=== PATIENT | female | born 1970 | race Two or more races ===

== ENCOUNTER 2019-06-13 15:21 | Emergency (ER) | payer OTHER ==
[~2019-06-13] VITALS: Ht 152.4 cm; Wt 64.0 kg
== END 2019-06-13 19:28 | disposition home or self-care (01) ==
LOC: ER 15:21
DX: B34.9 Viral infection, unspecified (principal)

== ENCOUNTER 2019-12-20 10:35 | Outpatient (CLI) | payer OTHER | END 2019-12-20 10:47 | disposition home or self-care (01) | LOC: RAD 10:35 | PROVIDERS: ATTEND Physical Medicine & Rehabilitation | DX: M16.11 Unilateral primary osteoarthritis, right hip (principal) ==

== ENCOUNTER 2021-02-18 14:09 | Outpatient (CLI) | payer OTHER | END 2021-02-18 14:18 | disposition home or self-care (01) | LOC: SONOGRAMA 14:09 | PROVIDERS: ATTEND Urology | DX: N30.00 Acute cystitis without hematuria (principal) ==

== ENCOUNTER 2022-05-10 08:11 | Outpatient (CLI) | payer OTHER | END 2022-05-10 08:20 | disposition home or self-care (01) | LOC: RAD 08:11 | DX: J45.901 Unspecified asthma with (acute) exacerbation (principal); J20.9 Acute bronchitis, unspecified ==

== ENCOUNTER 2024-02-14 09:19 | Outpatient (CLI) | payer OTHER | END 2024-02-14 13:48 | disposition home or self-care (01) | LOC: RAD 09:19 | DX: M25.552 Pain in left hip (principal); M54.51 Vertebrogenic low back pain; M25.551 Pain in right hip ==

== ENCOUNTER 2024-06-04 09:04 | Emergency (ER) | payer OTHER ==
[~2024-06-04] VITALS: Ht 152.4 cm; Wt 60.8 kg
[2024-06-04] MEDS ORDERED: ORPHENADRINE CITRATE 30 MG/ML AMPUL IM STA (09:36)
[2024-06-04] MEDS ORDERED: KETOROLAC TROMETHAMINE 30 MG VIAL IM STA (09:36)
[2024-06-04] MEDS ORDERED: ORPHENADRINE CITRATE 30 MG/ML AMPUL ONE (09:44)
[2024-06-04] MEDS ORDERED: KETOROLAC TROMETHAMINE 30 MG VIAL ONE (09:44)
[2024-06-04 09:59] VITALS: O2SAT 97
== END 2024-06-04 10:00 | disposition home or self-care (01) ==
LOC: ER 09:06
DX: M54.41 Lumbago with sciatica, right side (principal); Z88.0 Allergy status to penicillin; Z88.6 Allergy status to analgesic agent

== ENCOUNTER 2024-07-16 07:09 | Outpatient (CLI) | payer OTHER | END 2024-07-16 07:14 | disposition home or self-care (01) | LOC: SONOGRAMA 07:09 | DX: E03.8 Other specified hypothyroidism (principal) ==

== ENCOUNTER 2024-12-29 07:13 | Outpatient (CLI) | payer OTHER | END 2024-12-29 07:16 | disposition home or self-care (01) | LOC: RAD 07:13 | PROVIDERS: ATTEND Internal Medicine | DX: N80.03 Adenomyosis of the uterus (principal); M20.41 Other hammer toe(s) (acquired), right foot; M20.42 Other hammer toe(s) (acquired), left foot ==

== ENCOUNTER → 2025-02-23 | Emergency (ER) | payer OTHER ==
[~2025-02-23] VITALS: Ht 152.4 cm; Wt 106.6 kg
[~2025-02-23] MED LIST: ARMOUR THYROID30 M1 PO; DEXAMETHASONE SODIUM PHOSPHATE 4 MG/ML VIAL IM ONE; DEXAMETHASONE SODIUM PHOSPHATE 4 MG/ML VIAL ONE; GABAPENTIN 100 MG CAPSULE PO ONE; KETOROLAC TROMETHAMINE 30 MG VIAL IM ONE; KETOROLAC TROMETHAMINE 30 MG VIAL ONE; ORPHENADRINE CITRATE 30 MG/ML AMPUL IM ONE; ORPHENADRINE CITRATE 30 MG/ML AMPUL ONE
== END | disposition left against medical advice (07) ==
LOC: ER 07:59
DX: M54.50 Low back pain, unspecified (principal); E03.9 Hypothyroidism, unspecified; Z88.8 Allergy status to other drugs, medicaments and biological substances

== ENCOUNTER 2025-05-04 07:16 | Outpatient (CLI) | payer OTHER ==
[~2025-05-04 07:16] MED LIST changes: -DEXAMETHASONE SODIUM PHOSPHATE 4 MG/ML VIAL IM ONE; -DEXAMETHASONE SODIUM PHOSPHATE 4 MG/ML VIAL ONE; -GABAPENTIN 100 MG CAPSULE PO ONE; -KETOROLAC TROMETHAMINE 30 MG VIAL IM ONE; -KETOROLAC TROMETHAMINE 30 MG VIAL ONE; -ORPHENADRINE CITRATE 30 MG/ML AMPUL IM ONE; -ORPHENADRINE CITRATE 30 MG/ML AMPUL ONE
== END 2025-05-04 07:23 | disposition home or self-care (01) ==
LOC: RAD 07:16
DX: M19.90 Unspecified osteoarthritis, unspecified site (principal)